=== PATIENT | female | born 2000 | race Caucasian/White ===

== ENCOUNTER 2025-03-29 07:40 | Emergency (ER) | payer OTHER ==
[~2025-03-29] VITALS: Ht 162.6 cm; Wt 77.1 kg
[2025-03-29 07:45] VITALS: O2SAT 99
[2025-03-29] MEDS: SODIUM CHLORIDE 0.9% (SEPSIS BOLUS) IV ONE (08:12)
[2025-03-29 08:26] LABS: HEMATOCRIT. 51.3 % (36.0-48.0); HEMOGLOBIN. 17.3 g/dL (12.0-16.0); MEAN CORPUSCULAR HEMOGLOBIN 29.6 pg (28.0-32.0); MEAN CORPUSCULAR HGB CONC 33.8 g/dL (31.0-37.0); MEAN CORPUSCULAR VOLUME 87.5 fL (81.0-99.0); PLATELET 256 x1000/uL (130-400); RED BLOOD CELL COUNT 5.86 mill/uL (4.2-5.4); RED CELL DISTRIBUTION WIDTH 13.6 % (11.6-14.6); WHITE BLOOD COUNT 9.1 x1000/uL (4.5-11.0)
[2025-03-29 08:27] LABS: DIFFERENTIAL COMMENT 1
[2025-03-29 08:30] LABS: CHLORIDE 104 mEq/L (98-107); POTASSIUM 4.1 mEq/L (3.5-5.1); SODIUM 139 mEq/L (136-145)
[2025-03-29 08:31] LABS: CALCIUM 9.8 mg/dL (8.7-10.4); CARBON DIOXIDE 26 mEq/L (21-32)
[2025-03-29 08:36] LABS: CREATININE 0.9 mg/dL (0.6-1.0); GLUCOSE 105 mg/dL (70-105); UREA NITROGEN BLOOD 12 mg/dL (9-23)
[2025-03-29 08:37] LABS: PROTHROMBIN TIME 10.6 sec (9.6-11.0)
[2025-03-29 08:38] LABS: ALANINE AMINOTRANSFERASE 18 IU/L (10-49); ASPARTATE AMINOTRANSFERASE 22 IU/L (<34); BILIRUBIN DIRECT 0.3 mg/dL (<=3.0); BILIRUBIN TOTAL 1.1 mg/dL (0.1-1.0); HCG SCREEN NEGATIVE; PROTEIN TOTAL 8.6 g/dL (6.0-8.3)
[2025-03-29 08:59] LABS: LACTIC ACID 2.9 mmol/L (0.4-2.0)
[2025-03-29 09:05] LABS: PLATELET ESTIMATE NORMAL
[2025-03-29] MEDS: PIPERACILLIN/TAZO 3.375G/50ML 50 ML IV NR (09:09)
[2025-03-29] MEDS: ONDANSETRON HCL 4MG/2ML INJ IV STA (09:09)
[2025-03-29 09:57] LABS: CLARITY URINE CLEAR (CLEAR); COLOR URINE YELLOW (YELLOW); GLUCOSE URINE NEGATIVE (NEGATIVE); KETONES URINE NEGATIVE (NEGATIVE); LEUKOCYTE ESTERASE URINE NEGATIVE (NEGATIVE); NITRITE URINE NEGATIVE (NEGATIVE); OCCULT BLOOD URINE NEGATIVE (NEGATIVE); PROTEIN URINE NEGATIVE (NEGATIVE); SPECIFIC GRAVITY URINE 1.022 (1.005-1.030); UROBILINOGEN URINE 0.2 E.U./dL (0.2-1.0)
[2025-03-29 13:50] VITALS: BP 102/60; PULSE 83; RESP 18; TEMP 37; O2SAT 98
[2025-03-29] MEDS ORDERED: PIPERACILLIN/TAZO 3.375G/100ML 100 ML IV ONE (14:00)
== END 2025-03-29 14:36 | disposition short-term general hospital (02) ==
LOC: ER 07:40
DX: A41.9 Sepsis, unspecified organism (principal); R65.20 Severe sepsis without septic shock; K81.9 Cholecystitis, unspecified; R16.0 Hepatomegaly, not elsewhere classified; Z79.899 Other long term (current) drug therapy; Z98.890 Other specified postprocedural states
CPT/HCPCS: 80076; 80048; 81003; 81025; 84703; 83605; 83690; 85025; 85610; 86850; 86900; 86901; 87040; 87086; 36415; 84145; 76705; 93005; 96361; 96374; 96375; 99291; J2405; J2543; J7030; Z7610 ×5; A4606